=== PATIENT | male | born 1985 | race Caucasian/White ===

== ENCOUNTER 2018-07-13 17:12 | Emergency (ER) | payer SELFPAY ==
[2018-07-13 17:18] VITALS: BP 152/88; PULSE 83; RESP 15; TEMP 37.2; O2SAT 99; BMI 30.1
--- NOTE | 2018-07-13 19:17 | ED.DENTAL ---
HPI - Dental/Oral General Chief complaint: Dental/Oral Stated complaint: facial swelling, dental issues Time Seen by Provider: 07/13/18 19:15 Source: patient Mode of arrival: ambulatory Limitations: no limitations History of Present Illness HPI Narrative: Patient is a 33 old male who presents a dental infection. He says that he finished a 7 day course of amoxicillin he finished it yesterday as soon as he finished here swelling in face again. No fevers or chills. he does not have a dentist. He can see that his face is still swollen. Location: Tooth # (12) Onset (ago): week(s) Related Data Previous Rx's Medication Instructions Recorded amoxicillin 500 mg PO BID #14 cap 07/13/18 Allergies Allergy/AdvReac Type Severity Reaction Status Date / Time No Known Drug Allergies Allergy Verified 07/13/18 17:18 Review of Systems Review of Systems GENERAL: Denies chills,fever HEENT: +dental pain Denies throat pain RESPIRATORY: Denies dyspnea, cough, wheezing CARDIOVASCULAR: Denies chest pain, palpitations GASTROINTESTINAL: Denies nausea, vomiting MUSCULOSKELETAL: Denies extremity pain, injury SKIN: No rash, no laceration, no pruritus NEUROLOGIC: Denies weakness, dizziness, headache, numbness 8 point review of systems is negative except for those stated above and HPI [facility] Medical History Dental infection (Acute) Social History Smoking Status: Current every day smoker Social History Smoking Status: Current every day smoker Exam Initial Vital Signs Initial Vital Signs: Vital Signs Temperature 99.0 F 07/13/18 17:18 Pulse Rate 83 07/13/18 17:18 Respiratory Rate 15 07/13/18 17:18 Blood Pressure 152/88 H 07/13/18 17:18 Pulse Oximetry 99 07/13/18 17:18 GENERAL: Well-appearing, well-nourished and in no acute distress. CARDIOVASCULAR: peripheral pulses in tact, cap refill <2 sec RESPIRATORY: No respiratory distress, speaks in full sentences without difficulty EXTREMITIES: Normal range of motion, no clubbing or edema. Neurovascularly intact NEUROLOGICAL: Cranial nerves II through XII grossly intact. Normal gait and speech. SKIN: Warm, dry, no petechiae, no rashes or lesions. HENMT Adult Head Mouth: 1. Multiple dental caries poor dentition all around Course Vital Signs - 8 hr 07/13/18 17:18 07/13/18 19:45 Temperature 99.0 F Pulse Rate 83 77 Respiratory Rate 15 16 Blood Pressure 152/88 H 137/79 Pulse Oximetry 99 99 Discharge Plan Departure Patient Disposition: Home Clinical Impression: Dental caries Discharge Date/Time: 07/13/18 19:46 Interventions: ED Discharge Assessment Last Done: 07/13/18 19:45 Instructions: DI for Dental Pain Activity Restrictions/Additional Instructions: *You have been diagnosed with dental pain *What to do: Needed dentist and to removed *Continue to take medications as directed Amoxicllin 500 mg twice daily *Follow up with your primary care provider in 2-3 days *Return to ER if you should have increasing facial swelling pain or any new, worsening or concerning symptoms Prescriptions: New amoxicillin 500 mg capsule 500 mg PO BID Qty: 14 RF: 0
[2018-07-13 19:45] VITALS: BP 137/79; PULSE 77; RESP 16; O2SAT 99
--- NOTE | 2018-07-13 19:45 | PC.NURSE ---
left upper tooth pain
== END 2018-07-13 19:46 | disposition home or self-care (01) ==
PROVIDERS: Emergency Provider Emergency Medicine
DX: K02.9 Dental caries, unspecified (principal)
CPT/HCPCS: 99282; 99283

== ENCOUNTER 2019-08-14 13:39 | Emergency (ER) | payer OTHER, SELFPAY ==
[2019-08-14 13:46] VITALS: BP 159/95; PULSE 88; RESP 16; TEMP 37.1; O2SAT 98
--- NOTE | 2019-08-14 14:34 | ED.DENTAL ---
HPI - Dental/Oral <CORBIN Car - Last Filed: 08/14/19 14:41> General Chief complaint: Dental/Oral Stated complaint: tooth infection Time Seen by Provider: 08/14/19 13:57 Source: patient Mode of arrival: Ambulatory Limitations: no limitations History of Present Illness HPI Narrative: This is a 34-year-old male, smoker, who presents to ED with significant other with chief complain of dental caries and pain. Patient states he has many problems with dental caries for a while and he finally has an appointment with [facility] dental clinic next week for an evaluation. Reports his teeth has been broken into pieces and knees removal. However, when he woke up this morning he noticed swelling to right side of his face and worsening pain for last couple of days. Patient denies fever, chills, nausea or vomiting. Related Data Previous Rx's Medication Instructions Recorded amoxicillin 500 mg PO BID #14 cap 07/13/18 amoxicillin-pot clavulanate 1 tab PO BID 10 Days #20 tab 08/14/19 [Augmentin] Allergies Allergy/AdvReac Type Severity Reaction Status Date / Time No Known Drug Allergies Allergy Verified 07/13/18 17:18 Review of Systems <CORBIN Car - Last Filed: 08/14/19 14:41> Review of Systems Narrative: General: Denies fever, chills, fatigue, malaise, sweats. HEENT: See HPI Respiratory: Denies dyspnea, cough, wheezing, hemoptysis, sputum. Cardiovascular: Denies chest pain, palpitations, orthopnea, edema. Gastrointestinal: Denies nausea, vomiting, abdominal pain, diarrhea, constipation, melena. : Denies dysuria, frequency, incontinence, hematuria, urinary retention. Musculoskeletal: Denies weakness, joint pain or bony pain. Skin: Denies rash, skin lesions, or other. Neurologic: Denies weakness, headache, numbness, change in speech, confusion, seizures, incoordination. Psychiatric: No concerning psychosocial issues. 12-point review of systems is negative except for those stated above. Patient History <CORBIN Car - Last Filed: 08/14/19 14:41> Medical History Dental infection (Acute) Surgical History History of appendectomy (Acute) History of tonsillectomy (Acute) Social History Smoking Status: Current every day smoker Smoking Status: Current every day smoker Substance Use Type: does not use Exam <CORBIN Car - Last Filed: 08/14/19 14:41> Narrative Exam Narrative: General appearance: well developed, well nourished, in no acute distress. Head: normocephalic, atraumatic, no scalp lesions, non-tender. ENT: Hearing grossly intact. Nose without bleeding, purulent discharge. Generalize poor dental condition with multiple caries with black and yellow discoloration. Mild swelling to right lower cheeck without warmth or redness. Facial sinuses nontender to palpate. Mucous membrane moist. Throat without erythema or exudate. Uvula in midline, airway patent. Neck/Thyroid: neck supple, full range of motion, no visible masses or meningeal signs. No JVD, tender to palpate on right anterior cervical lymphadenopathy. Skin: no suspicious rashes, lesions over visible areas. Warm and dry and appropriate color for ethnicity. Heart: no clubbing, no cyanosis, no edema. S1 and S2 normal. RRR w/o murmurs, clicks, or bruits. Lungs: Breathing even and unlabored. No stridor. No accessory muscles used. Able to speak in full sentences. Chest: normal shape and expansion. Abdomen: non-obese, non-distended. Neurologic: alert and oriented. Cognitive exam, FIRE COORDINATOR and PNS grossly intact on informal exam. Psych: good eye contact, normal affect. Initial Vital Signs Initial Vital Signs: Vital Signs Temperature 98.8 F 08/14/19 13:46 Pulse Rate 88 08/14/19 13:46 Respiratory Rate 16 08/14/19 13:46 Blood Pressure 159/95 H 08/14/19 13:46 Pulse Oximetry 98 08/14/19 13:46 <Noel Guardado DO - Last Filed: 08/14/19 15:22> Initial Vital Signs Initial Vital Signs: Vital Signs Temperature 98.8 F 08/14/19 13:46 Pulse Rate 88 08/14/19 13:46 Respiratory Rate 16 08/14/19 13:46 Blood Pressure 159/95 H 08/14/19 13:46 Pulse Oximetry 98 08/14/19 13:46 Scores <Subhash Brunner RELIEF DRILLER - Last Filed: 08/14/19 14:41> GCS Lina coma scale eye opening: Spontaneous [place] coma scale verbal response: Orientated [place] coma scale motor response: Obey commands [place] coma scale total score: 15 Course <Subhash StephenCORBIN roberts - Last Filed: 08/14/19 14:41> Vital Signs Vital signs: Vital Signs - 8 hr 08/14/19 13:46 Temperature 98.8 F Pulse Rate 88 Respiratory Rate 16 Blood Pressure 159/95 H Pulse Oximetry 98 <Noel Guardado DO - Last Filed: 08/14/19 15:22> Vital Signs Vital signs: Vital Signs - 8 hr 08/14/19 13:46 Temperature 98.8 F Pulse Rate 88 Respiratory Rate 16 Blood Pressure 159/95 H Pulse Oximetry 98 MDM - Dental/Oral <Subhash BrunnerCORBIN - Last Filed: 08/14/19 14:41> Differential Diagnosis Differential diagnosis: Likely dental caries, toothache, dental abscess and fracture of tooth Medical Records Attestation: I reviewed the patient's medical records. [facility] Narrative Medical decision making narrative: This is a 34-year-old male who has multiple dental caries and fractured tooth with right lower cheek swelling and dental pain in right lower tooth. Patient has an appointment with [facility] in about a week for an evaluation. Patient discharged to home with Augmentin b.i.d. 10 day course and advised to take [id number] Tylenol and or Motrin as needed for discomfort. Return precautions were discussed with the patient and patient verbalized understanding and agreement with treatment plan. Discharge Plan Departure Patient Disposition: Home Clinical Impression: Dental caries Discharge Date/Time: 08/14/19 14:35 Instructions: DI for Tooth Decay Activity Restrictions/Additional Instructions: You have been diagnosed with [dental caries and infection.]. What to do: *Take your medications as directed. Please start Augmentin twice a day for next 10 days. Please keep your appointment with dental office as scheduled. Antibiotic medication can cause GI symptoms such as diarrhea. It is good idea to take probiotics while on antibiotic medications. This medication has been transmitted to [facility]. *Follow up with your primary care provider in 2-3 days, call for an appointment. Let them know you were seen in the ED and that we asked you to be seen in follow up. *Return to ED if you have any new, worsening, or concerning symptoms, such as [increasing pain, fever, redness/swelling/warmth increasing to her face, chest pain, breathing difficulty, unable to tolerate fluids or any acute concerns]. Prescriptions: New amoxicillin-pot clavulanate [Augmentin] 875-125 mg tablet 1 tab PO BID 10 Days Qty: 20 RF: 0 No Action amoxicillin 500 mg capsule 500 mg PO BID Qty: 14 RF: 0 Referrals: [facility] [Outside] <Noel Guardado, DO - Last Filed: 08/14/19 15:22> Cosign ED Attending Coskevinature Attestation: Dr Guardado Co-Sign Statement: I was available for consultation during this patient's emergency department visit. This chart is signed by myself for administrative purposes only. I did not have direct contact with this patient during this visit. They were seen independently by the APC.
== END 2019-08-14 14:35 | disposition home or self-care (01) ==
PROVIDERS: Emergency Provider Nurse Practitioner Family
DX: K02.9 Dental caries, unspecified (principal)
CPT/HCPCS: 99281

== ENCOUNTER 2019-09-14 12:10 | Emergency (ER) | payer OTHER, MEDICAID, SELFPAY ==
--- NOTE | 2019-09-14 12:24 | ED.DENTAL ---
HPI - Dental/Oral General Chief complaint: Dental/Oral Stated complaint: Infection In Face, Antibiotics Not Working Time Seen by Provider: 09/14/19 12:23 Source: patient Mode of arrival: Ambulatory Limitations: no limitations History of Present Illness HPI Narrative: 34M smoker with extensive dental decay presents with the chief complaint of dental pain and facial swelling for the past few days. He denies injury, fever, chills or other. He has tried reaching his dentist but has been unsuccessful. He was seen here about a month ago and was given augmentin. MD Complaint: tooth pain Onset (ago): day(s) Duration: constant Severity: moderate Relieving factors: NSAIDs Exacerbating factors: chewing Context: history of dental caries and poor dental care Treatment prior to arrival: none Related Data Previous Rx's Medication Instructions Recorded amoxicillin 500 mg PO BID #14 cap 07/13/18 amoxicillin-pot clavulanate 1 tab PO BID #20 tab 09/14/19 [Augmentin] ketorolac 10 mg PO Q6H PRN #14 tab 09/14/19 Allergies Allergy/AdvReac Type Severity Reaction Status Date / Time No Known Drug Allergies Allergy Verified 07/13/18 17:18 Review of Systems Constitutional Constitutional: Denies chills, Denies fatigue, Denies fever(s), Denies frequent falls, Denies lethargy and Denies weakness Eyes Eyes: Denies change in vision, Denies eye discharge, Denies irritation and Denies loss of vision ENT Ears, Nose, Mouth, and Throat: Denies change in voice, Reports dental pain, Denies dizziness, Denies neck pain, Denies sore throat and Denies throat swelling Cardiovascular Cardiovascular: Denies chest pain, Denies irregular heart rhythm, Denies lightheadedness, Denies palpitations, Denies dyspnea, Denies dyspnea on exertion and Denies orthopnea Respiratory Respiratory: Denies cough, Denies dyspnea, Denies dyspnea on exertion and Denies wheezing Gastrointestinal Gastrointestinal: Denies abdominal pain, Denies change in bowel habits, Denies diarrhea, Denies nausea and Denies vomiting Musculoskeletal Musculoskeletal: Denies neck pain and Denies numbness Integumentary/Breasts Skin/Breast: Denies pruritus, Denies erythema, Denies rash and Denies wounds Neurologic Neurologic: Denies behavioral changes, Denies confusion, Denies dizziness, Denies frequent falls, Denies loss of vision, Denies numbness and Denies weakness Psychiatric Psychiatric: Denies anxiety, Denies behavioral changes, Denies confusion, Denies depression, Denies homicidal ideation and Denies suicidal ideation Endocrine Endocrine: Denies fatigue, Denies flushing and Denies palpitations Hematologic/Lymphatic Hematologic/Lymphatic: Denies easy bruising Allergic/Immunologic Allergic/Immunologic: Denies urticaria, Denies throat swelling and Denies wheezing Patient History Medical History Dental infection (Acute) Surgical History History of appendectomy (Acute) History of tonsillectomy (Acute) Social History Smoking Status: Current every day smoker Smoking Status: Current every day smoker Substance Use Type: does not use Exam Narrative Exam Narrative: GEN: AOx3 and in mild distress EYES: Pupils are equal, round, and reactive to light and accommodation. Extraoccular muscles are intact bilaterally. There is no subconjunctival hemorrhage or exudate. ENT: No obvious facial swelling. Poor denition throughout, no obvious intraoral abscess CHEST: Lungs are clear to auscultation bilaterally and free of wheezes, rales, or rhonchi. Heart rate is regular rhythm, there are no murmurs, clicks, rubs, or gallops. There is no chest wall tenderness. ABD: Abdomen is soft and nontender. There is no guarding or rebound. Bowel sounds are normal in all 4 quadrants. There is no mass or organomegaly. EXT: Full painless ROM of all extremities with no loss of sensation or strength. SKIN: Warm, pink, and dry. No erythema or rash Initial Vital Signs Initial Vital Signs: Vital Signs Temperature 98.3 F 09/14/19 12:31 Pulse Rate 83 09/14/19 12:31 Respiratory Rate 16 09/14/19 12:31 Blood Pressure 180/108 H 09/14/19 12:31 Pulse Oximetry 99 09/14/19 12:31 Course Vital Signs Vital signs: Vital Signs - 8 hr 09/14/19 12:31 Temperature 98.3 F Pulse Rate 83 Respiratory Rate 16 Blood Pressure 180/108 H Pulse Oximetry 99 Discharge Plan Departure Patient Disposition: Home Clinical Impression: Toothache, Dental caries, Dental abscess Discharge Date/Time: 09/14/19 12:48 Instructions: Tooth Decay, DI for Dental Pain Activity Restrictions/Additional Instructions: *You have been diagnosed with [widespread dental decay with likely dental abscess] *What to do: *Take medications as directed *Follow up with a dental provider in 2-3 days, call for an appointment. Let them know you were seen in the Emergency Department and that we ask that you be seen in follow up *Return to ER if you should have any new, worsening or concerning symptoms We did call [facility] ([phone]) here in [place] and they are accepting new patients Prescriptions: New amoxicillin-pot clavulanate [Augmentin] 875-125 mg tablet 1 tab PO BID Qty: 20 RF: 0 ketorolac 10 mg tablet 10 mg PO Q6H PRN (Reason: pain) Qty: 14 RF: 0 No Action amoxicillin 500 mg capsule 500 mg PO BID Qty: 14 RF: 0 Referrals: Shashank Singleton DMD [Physician] -
[2019-09-14 12:31] VITALS: BP 180/108; PULSE 83; RESP 16; TEMP 36.8; O2SAT 99; BMI 30.1
== END 2019-09-14 12:48 | disposition home or self-care (01) ==
PROVIDERS: Emergency Provider Emergency Medicine
DX: K04.7 Periapical abscess without sinus (principal); K02.9 Dental caries, unspecified
CPT/HCPCS: 99281

== ENCOUNTER 2019-11-09 16:06 | Emergency (ER) | payer OTHER, MEDICAID, SELFPAY ==
[2019-11-09 16:10] VITALS: BP 176/92; PULSE 87; RESP 16; TEMP 37.2; O2SAT 100
[2019-11-09 17:15] VITALS: BP 175/109; PULSE 82; RESP 18; O2SAT 100
--- NOTE | 2019-11-09 17:45 | ED.DENTAL ---
HPI - Dental/Oral <CORBIN Car - Last Filed: 11/09/19 18:05> General Chief complaint: Dental/Oral Stated complaint: tooth infection/high bp Time Seen by Provider: 11/09/19 16:14 Source: patient Mode of arrival: Ambulatory Limitations: no limitations History of Present Illness HPI Narrative: 34-year-old male, smoker, who has been visiting emergency room 3 times in the past from July to September with same chief complain dental pain/abscess on the right lower mouth. He finally was able to be seen at [facility] but had elevated blood pressure at the time of visit and dental procedure has been postponed until his blood pressure is controlled. Patient reports waiting for new primary care physician's evaluation in early December. Patient noticed recurring dental pain last several days with facial swelling that he noticed today. He denies injury, chills, fever, nausea or vomiting, or drainage from mucous membrane. He has been taking 800 mg Motrin several times a day without much improvement in pain. Patient had taken Augmentin with last treatment in about a month ago. Patient denies using street drugs. Patient reports has history of poor dental care and caries. Related Data Previous Rx's Medication Instructions Recorded amoxicillin 500 mg PO BID #14 cap 07/13/18 amoxicillin-pot clavulanate 1 tab PO BID #20 tab 09/14/19 [Augmentin] ketorolac 10 mg PO Q6H PRN #14 tab 09/14/19 amoxicillin-pot clavulanate 1 tab PO BID #20 tab 11/09/19 [Augmentin] Allergies Allergy/AdvReac Type Severity Reaction Status Date / Time No Known Drug Allergies Allergy Verified 07/13/18 17:18 Review of Systems <Subhash Brunner SCIENTIFIC EDITOR - Last Filed: 11/09/19 18:05> Review of Systems Narrative: General: Denies fever, chills, fatigue, malaise, sweats. HEENT: See HPI Respiratory: Denies dyspnea, cough, wheezing, hemoptysis, sputum. Cardiovascular: Denies chest pain, palpitations, orthopnea, edema. Gastrointestinal: Denies nausea, vomiting, abdominal pain, diarrhea, constipation, melena. : Denies dysuria, frequency, incontinence, hematuria, urinary retention. Musculoskeletal: Denies weakness, joint pain or bony pain. Skin: Denies rash, skin lesions, or other. Neurologic: Denies weakness, headache, numbness, change in speech, confusion, seizures, incoordination. Psychiatric: No concerning psychosocial issues. 12-point review of systems is negative except for those stated above. Patient History <CORBIN Car - Last Filed: 11/09/19 18:05> Medical History Dental infection (Acute) Surgical History History of appendectomy (Acute) History of tonsillectomy (Acute) Social History Smoking Status: Current every day smoker Smoking Status: Current every day smoker tobacco type: cigarettes alcohol intake frequency: 0-2 drinks per day Substance Use Type: does not use Exam <CORBIN Car - Last Filed: 11/09/19 18:05> Narrative Exam Narrative: General appearance: well developed, well nourished, in no acute distress. Head: normocephalic, atraumatic, no scalp lesions, non-tender. ENT: Hearing grossly intact. Nose without bleeding, purulent discharge. Facial sinuses nontender to palpate and without obvious swelling. Mucous membrane moist, no mucosal lesion. Throat without erythema, tonsillar hypertrophy or exudate. Uvula in midline, airway patent. Poor dental condition throughout with multiple caries and broken teeth. Neck/Thyroid: neck supple, full range of motion, no visible masses or meningeal signs. No JVD, non-tender without anterior cervical lymphadenopathy. Skin: no suspicious rashes, lesions over visible areas. Warm and dry and appropriate color for ethnicity. Heart: no clubbing, no cyanosis, no edema. S1 and S2 normal. RRR w/o murmurs, clicks, or bruits. Lungs: Breathing even and unlabored. No stridor. No accessory muscles used. Able to speak in full sentences. Chest: normal shape and expansion. Abdomen: non-obese, non-distended. Neurologic: alert and oriented. Cognitive exam, PROCESS SUPERVISOR and PNS grossly intact on informal exam. Psych: good eye contact, normal affect. Initial Vital Signs Initial Vital Signs: Vital Signs Temperature 99 F 09/04/20 16:10 Pulse Rate 87 11/09/19 16:10 Respiratory Rate 16 11/09/19 16:10 Blood Pressure 176/92 H 11/09/19 16:10 Pulse Oximetry 100 11/09/19 16:10 <Mojgan Tilley DO - Last Filed: 11/11/19 08:31> Initial Vital Signs Initial Vital Signs: Vital Signs Temperature 99 F 11/09/19 16:10 Pulse Rate 87 11/09/19 16:10 Respiratory Rate 16 11/09/19 16:10 Blood Pressure 176/92 H 11/09/19 16:10 Pulse Oximetry 100 11/09/19 16:10 Scores <CORBIN Car - Last Filed: 11/09/19 18:05> GCS Lina coma scale eye opening: Spontaneous [place]ina coma scale verbal response: Orientated [place] coma scale motor response: Obey commands Lina coma scale total score: 15 qSOFA Altered Mental Status (GCS <15): No Respiratory rate greater than/equal to 22: No Systolic blood pressure less than or equal to 100: No qSOFA Total: 0 0-1 Not High Risk 1-3 High risk Course <CORBIN Car - Last Filed: 11/09/19 18:05> Vital Signs Vital signs: Vital Signs - 8 hr 11/09/19 16:10 11/09/19 17:15 Temperature 99 F Pulse Rate 87 82 Respiratory Rate 16 18 Blood Pressure 176/92 H 175/109 H Pulse Oximetry 100 100 <Mojgan Tilley DO - Last Filed: 11/11/19 08:31> Vital Signs Vital signs: Vital Signs - 8 hr 11/09/19 16:10 11/09/19 17:15 Temperature 99 F Pulse Rate 87 82 Respiratory Rate 16 18 Blood Pressure 176/92 H 175/109 H Pulse Oximetry 100 100 MDM - Dental/Oral <CORBIN Car - Last Filed: 11/09/19 18:05> Differential Diagnosis Differential diagnosis: Likely dental caries, dental abscess and fracture of tooth Medical Records Attestation: I reviewed the patient's medical records. MDM Narrative Medical decision making narrative: Will treat patient's symptoms with Augmentin b.i.d. for 10 day course. Patient advised to follow-up with [facility] and new primary care physician for hypertension in a couple of weeks as scheduled. Since patient has not seen primary care physician for a long time, hesitant to start blood pressure medication where he cannot followed up as in ED. Patient has asymptomatic hypertension in ED. patient is afebrile. Patient advised to take probiotics to prevent GI symptoms or diarrhea. Patient advised to take [id number] Tylenol and or Motrin as needed for discomfort. Return precautions were discussed with patient and patient verbalized understanding and agreement with treatment plan. Discharge Plan Departure Patient Disposition: Home Clinical Impression: Dental abscess Discharge Date/Time: 11/09/19 17:17 Instructions: Tooth Abscess, DI for Dental Pain Activity Restrictions/Additional Instructions: You have been diagnosed with [dental pain likely from abscess in right lower mouth.]. What to do: *Take your medications as directed. Please start taking Augmentin twice a day for next 10 days. The medication has been transmitted to [facility] in [facility]. Please take ibuprofen 400 mg up to 4 times a day and Tylenol 650-1000 mg up to 3 to 4 times a day. You can use cool pack on affected site. It is good idea to start probiotics since you been on antibiotic medication quite frequently. *Follow up with your primary care provider in 2-3 days, call for an appointment and dentist. Let them know you were seen in the ED and that we asked you to be seen in follow up. *Return to ED if you have any new, worsening, or concerning symptoms, such as [fever, chills, nausea or vomiting, chest pain, breathing difficulty, unable to tolerate medications or any acute concerns]. Prescriptions: New amoxicillin-pot clavulanate [Augmentin] 875-125 mg tablet 1 tab PO BID Qty: 20 RF: 0 No Action amoxicillin 500 mg capsule 500 mg PO BID Qty: 14 RF: 0 amoxicillin-pot clavulanate [Augmentin] 875-125 mg tablet 1 tab PO BID Qty: 20 RF: 0 ketorolac 10 mg tablet 10 mg PO Q6H PRN (Reason: pain) Qty: 14 RF: 0 <Mojgan Tilley DO - Last Filed: 11/11/19 08:31> Coskevin ED Attending Olvin Attestation: I was immediately available in the department for consultation. Documentation has been reviewed. I agree with assessment and plan.
== END 2019-11-09 17:17 | disposition home or self-care (01) ==
PROVIDERS: Emergency Provider Nurse Practitioner Family
DX: K04.7 Periapical abscess without sinus (principal)
CPT/HCPCS: 99281